=== PATIENT | female | born 1990 | race Caucasian/White ===

== ENCOUNTER 2018-12-10 22:20 | Emergency (ER) | payer SELFPAY, MEDICAID ==
[2018-12-11 00:40] LABS: URINE PH (Dip) POC 5.5 (5.0-8.5)
[2018-12-11 00:40] LABS: URINE BLOOD (Dip) POC Negative (NEGATIVE); URINE GLUCOSE (Dip) POC Negative (NEGATIVE); URINE KETONES (Dip) POC Negative (NEGATIVE); URINE LEUKOCYTE EST (Dip) POC Negative (NEGATIVE); URINE NITRITE (Dip) POC Negative (NEGATIVE); URINE TOTAL PROTEIN POC Negative (NEGATIVE)
== END 2018-12-11 00:51 | disposition home or self-care (01) ==
LOC: FTE 22:20
DX: O99.89 Other specified diseases and conditions complicating pregnancy, childbirth and the puerperium (principal); M54.32 Sciatica, left side; Z3A.19 19 weeks gestation of pregnancy
CPT/HCPCS: 81003; 99282

== ENCOUNTER 2019-04-28 12:42 | Inpatient (IN) | payer MEDICAID ==
[2019-04-28] MEDS ORDERED: OXYTOCIN 30 UNITS/LR 500 ML IV (14:00)
[2019-04-28] MEDS ORDERED: CARBOPROST 250 MCG INJ IM (14:00)
[2019-04-28] MEDS ORDERED: MISOPROSTOL 200 MCG TAB PR (14:00)
[2019-04-28] MEDS ORDERED: METHYLERGONOVINE 0.2 MG INJ IM (14:00)
[2019-04-28 14:19] LABS: ADD MAN DIFF? NO
[2019-04-28 14:22] LABS: BASOPHIL # 0.1 10^3/ul (0.0-0.1); BASOPHILS % 0.6 % (0.0-2.0); EOSINOPHILS # 0.1 10^3/ul (0.0-0.5); EOSINOPHILS % 0.9 % (0.0-7.0); HEMATOCRIT 37.9 % (37.0-47.0); HEMOGLOBIN 13.1 g/dl (12.0-16.0); LYMPHOCYTES # 1.4 10^3/ul (0.8-2.9); MEAN CORPUSCULAR HEMOGLOBIN 30.9 pg (29.0-33.0); MEAN CORPUSCULAR HGB CONC 34.6 g/dl (32.0-37.0); MEAN CORPUSCULAR VOLUME 89.4 fl (82.0-101.0); MEAN PLATELET VOLUME 10.6 fl (7.4-10.4); MONOCYTE # 0.6 10^3/ul (0.3-0.9); MONOCYTES % 6.6 % (0.0-11.0); NEUTROPHIL # 7.2 10^3/ul (1.6-7.5); NEUTROPHILS % 74.6 % (39.0-77.0); PLATELET COUNT 189 10^3/UL (140-415); RED BLOOD COUNT 4.24 10^6/ul (4.20-5.40); RED CELL DISTRIBUTION WIDTH 13.1 % (11.5-14.5)
[2019-04-28 14:22] LABS: WHITE BLOOD COUNT 9.7 10^3/ul (4.8-10.8)
[2019-04-28] MEDS: LACTATED RINGER'S 1,000 ML IV ×2 (14:39→20:15)
[2019-04-28 14:42] LABS: INR 0.97
[2019-04-28 14:43] LABS: PARTIAL THROMBOPLASTIN TIME 30.3 Sec (23.0-35.0)
[2019-04-28 15:22] LABS: RAPID PLASMA REAGIN NONREACTIVE (NR)
[2019-04-28] MEDS: ONDANSETRON 4 MG INJ IV (20:02)
[2019-04-28] MEDS: METOCLOPRAMIDE 10 MG INJ IV (20:03)
[2019-04-28] MEDS ORDERED: PHENYLephrine (100 MCG/ML) 10ML SYG (20:57)
[2019-04-28] MEDS ORDERED: morphine SULFATE/PF (10 MG/10 ML) INJ (20:57)
[2019-04-28] MEDS ORDERED: EPHEDrine 25 MG/5 ML SYG (20:57)
[2019-04-28] MEDS ORDERED: HYDROmorphONE 0.5 MG/0.5 ML SYG IV (21:30)
[2019-04-28] MEDS ORDERED: METOCLOPRAMIDE 10 MG INJ IV (21:30)
[2019-04-28] MEDS ORDERED: DIPHENHYDRAMINE 50 MG INJ IV ×2 (21:30)
[2019-04-28] MEDS ORDERED: NALOXONE (0.4 MG/ML) INJ IV (21:30)
[2019-04-28] MEDS ORDERED: FENTAnyl 50 MCG/ML VIAL IV ×2 (21:30)
[2019-04-28] MEDS ORDERED: HYDROmorphONE 1 MG/5 ML IV SYRINGE IV ×2 (21:30)
[2019-04-28] MEDS ORDERED: ONDANSETRON 4 MG INJ IV ×2 (21:30)
[2019-04-28] MEDS ORDERED: ALBUTEROL 0.083% (NEB) 2.5 MG/3 ML AMP HHN (21:30)
[2019-04-28] MEDS: CEFAZOLIN 2 GM/50 ML (PMX) 50 ML IVPB (23:48)
[2019-04-29] MEDS: KETOROLAC 30 MG INJ IV ×3 (00:10→18:02)
[2019-04-29] MEDS: OXYTOCIN 30 UNITS/LR 500 ML IV ×2 (02:05→06:20)
[2019-04-29] MEDS: DEXTROSE 5%-LR 1,000 ML IV (03:53)
[2019-04-29] MEDS ORDERED: METHYLERGONOVINE 0.2 MG INJ IM (04:00)
[2019-04-29] MEDS ORDERED: CARBOPROST 250 MCG INJ IM (04:00)
[2019-04-29] MEDS ORDERED: LANOLIN HPA 1 PKT TOP (04:00)
[2019-04-29] MEDS ORDERED: MISOPROSTOL 200 MCG TAB PR (04:00)
[2019-04-29] MEDS ORDERED: OXYTOCIN 30 UNITS/LR 500 ML IV (04:00)
[2019-04-29] MEDS ORDERED: METHYLERGONOVINE 0.2 MG TAB PO (04:00)
[2019-04-29 08:00] LABS: ADD MAN DIFF? NO
[2019-04-29 08:04] LABS: BASOPHILS % 0.4 % (0.0-2.0); EOSINOPHILS % 0.4 % (0.0-7.0); HEMATOCRIT 34.9 % (37.0-47.0); HEMOGLOBIN 11.7 g/dl (12.0-16.0); LYMPHOCYTES # 1.1 10^3/ul (0.8-2.9); LYMPHOCYTES % 10.6 % (15.0-51.0); MEAN CORPUSCULAR HEMOGLOBIN 30.3 pg (29.0-33.0); MEAN CORPUSCULAR HGB CONC 33.5 g/dl (32.0-37.0); MEAN CORPUSCULAR VOLUME 90.4 fl (82.0-101.0); MEAN PLATELET VOLUME 11.1 fl (7.4-10.4); MONOCYTE # 0.6 10^3/ul (0.3-0.9); MONOCYTES % 6.4 % (0.0-11.0); NEUTROPHIL # 8.1 10^3/ul (1.6-7.5); PLATELET COUNT 172 10^3/UL (140-415); RED BLOOD COUNT 3.86 10^6/ul (4.20-5.40)
[2019-04-29] MEDS: SENNA/DOCUSATE NA (8.6MG/50MG) TAB PO ×2 (10:48→21:48)
[2019-04-29] MEDS ORDERED: DIPHTH/TET/ACEL PERTUSS (ADULT) 0.5 ML VIAL IM* (11:00)
[2019-04-29] MEDS: HYDROmorphONE 0.5 MG/0.5 ML SYG IV (12:24)
[2019-04-29] MEDS: HYDROCODONE/APAP (5/325) TAB PO (21:48)
[2019-04-29] MEDS: IBUPROFEN 800 MG TAB PO (21:48)
[2019-04-30] MEDS: HYDROCODONE/APAP (5/325) TAB PO ×5 (04:49→21:39)
[2019-04-30] MEDS: IBUPROFEN 800 MG TAB PO ×3 (05:33→21:39)
[2019-04-30] MEDS: SENNA/DOCUSATE NA (8.6MG/50MG) TAB PO ×2 (09:09→20:43)
[2019-04-30] MEDS: MAGNESIUM HYDROXIDE 30ML CUP PO (20:43)
[2019-05-01] MEDS: IBUPROFEN 800 MG TAB PO ×2 (05:37→14:20)
[2019-05-01] MEDS: HYDROCODONE/APAP (5/325) TAB PO ×2 (05:37→14:20)
[2019-05-01] MEDS: MEASLES,MUMPS,RUBELLA VACCINE INJ SC* (09:00)
[2019-05-01] MEDS: SENNA/DOCUSATE NA (8.6MG/50MG) TAB PO (09:06)
[2019-05-01] MEDS: DIPHTH/TET/ACEL PERTUSS (ADULT) 0.5 ML VIAL IM* (09:08)
== END 2019-05-01 16:20 | disposition home or self-care (01) | DRG 785 ==
LOC: OBT 12:42 → PP1 04-29 00:43 → L-D 12:44 → OBT 13:45 → PP1 04-29 16:05 → L-D 13:55 → PP1 04-29 16:35 → L-D 21:05
PROVIDERS: Obstetrics & Gynecology
PROC: 10D00Z1 Extraction of Products of Conception, Low, Open Approach (ICD-10-PCS; principal; 2019-04-28 21:00)
PROC: 0UT70ZZ Resection of Bilateral Fallopian Tubes, Open Approach (ICD-10-PCS; 2019-04-28 21:00)
PROC: 3E033VJ Introduction of Other Hormone into Peripheral Vein, Percutaneous Approach (ICD-10-PCS; 2019-04-28 21:00)
DX: O65.5 Obstructed labor due to abnormality of maternal pelvic organs (principal); O34.211 Maternal care for low transverse scar from previous cesarean delivery; Z3A.38 38 weeks gestation of pregnancy; Z37.0 Single live birth; Z30.2 Encounter for sterilization
CPT/HCPCS: 76815; 76818; 85025; 85610; 85730; 86592; 86850; 86900; 86901; 88302; 90715; 99464